=== PATIENT | female | born 1980 | race Caucasian/White ===

== ENCOUNTER 2018-05-15 08:05 | Day surgery (SDC) | payer OTHER ==
[~2018-05-15] VITALS: Ht 162.6 cm; Wt 80.3 kg
[2018-05-15] MEDS ORDERED: CEFAZOLIN SODIUM 2 GM/D5W PM 50 ML IV SCH (08:25)
[2018-05-15] MEDS ORDERED: BUPIVACAINE-MPF 0.25% 30 ML VIAL INJ ONE (10:45)
[2018-05-15] MEDS ORDERED: MIDAZOLAM 2 MG/2 ML VIAL ONE (10:57)
[2018-05-15] MEDS ORDERED: fentaNYL 0.05 MG/ML VIAL ONE (10:57)
[2018-05-15] MEDS: BUPIVACAINE-MPF 0.5% 30 ML VIAL INJ ONE (11:15)
[2018-05-15] MEDS ORDERED: MORPHINE SULFATE 4 MG/ML SYR IV PRN (11:25)
[2018-05-15] MEDS ORDERED: HYDROmorphone 1 MG/ML AMP IVP PRN (11:25)
[2018-05-15] MEDS ORDERED: HYDROcodone/APAP 5/325 MG 1 TAB TAB PO PRN (11:25)
[2018-05-15] MEDS ORDERED: ONDANSETRON 4 MG/2 ML VIAL IV PRN (11:25)
[2018-05-15] MEDS ORDERED: MORPHINE SULFATE 2 MG/ML SYR IVP PRN (11:25)
== END 2018-05-15 12:30 | disposition home or self-care (01) ==
LOC: MMU 08:05 → MOR 08:05
PROVIDERS: ATTEND Surgery
DX: D36.7 Benign neoplasm of other specified sites (principal)
CPT/HCPCS: 21552; 71045; 88307; J0690; J2250; J3010; J3490; J7120